=== PATIENT | male | born 1945 | race Caucasian/White ===

== ENCOUNTER 2020-01-02 21:16 | Inpatient (IN) | payer MEDICARE, OTHER ==
[~2020-01-02] VITALS: Ht 182.9 cm; Wt 91.8 kg
--- NOTE | 2020-01-02 21:46 | NUR ---
MD AT BEDSIDE PERFORMING A RECTAL EXAM DUE TO PATIENT REPORTING HE HAD BLACK STOOL TODAY
[2020-01-02] MEDS ORDERED: ACETAMINOPHEN 325 MG TABLET ONE (21:58)
[2020-01-02] MEDS ORDERED: SODIUM CHLORIDE FLUSH 10ML SYR IVF ONE (22:00)
[2020-01-02] MEDS ORDERED: ACETAMINOPHEN 325 MG TABLET PO ONE (22:00)
[2020-01-02 22:08] LABS: MICROSCOPIC AUTO
[2020-01-02 22:11] LABS: MEAN CORPUSCULAR HEMOGLOBIN 31.1 pg (27.5-34.5); MEAN CORPUSCULAR HGB CONC 34.6 g/dL (33.2-36.2); MEAN PLATELET VOLUME 6.7 fL (7.4-10.4); PLATELET COUNT 227 x10^3/uL (130-400); RED BLOOD COUNT 2.67 x10^6/uL (4.38-5.82); RED CELL DISTRIBUTION WIDTH 16.4 % (9.4-14.8)
[2020-01-02 22:20] LABS: ALBUMIN 2.9 g/dL (3.4-5.0); ANION GAP 8 mmol/L (5-15); CALCIUM 8.4 mg/dL (8.5-10.1); CHLORIDE 105 mmol/L (98-107)
[2020-01-02 22:26] LABS: BASOPHILS # (AUTO) 0.02 x10^3/uL (0-0.1); BASOPHILS % (AUTO) 1 % (0-1); EOSINOPHILS # (AUTO) 0.03 x10^3/uL (0-0.4); EOSINOPHILS % (AUTO) 1 % (1-7); LYMPHOCYTES # (AUTO) 0.66 x10^3/uL (1-3.4); LYMPHOCYTES % (AUTO) 30 % (22-44); MD MORPH REVIEW ONLY; MONOCYTES # (AUTO) 0.09 x10^3/uL (0.2-0.8); MONOCYTES % (AUTO) 4 % (2-9); NEUTROPHILS # (AUTO) 1.41 x10^3/uL (1.8-6.8); NEUTROPHILS % (AUTO) 64 % (42-75)
--- NOTE | 2020-01-02 22:26 | NUR ---
PATIENTS RECTAL WAS NEGATIVE
[2020-01-02 22:27] LABS: ANISOCYTOSIS 1+; OVALOCYTES 1+; POLYCHROMASIA 1+
[2020-01-02 22:28] LABS: <PLATELET ESTIMATE> ADEQUATE; <PLT MORPHOLOGY> NORMAL PLT MORPH
[2020-01-02] MEDS ORDERED: CEFTRIAXONE PMX 1GM/50ML 50 ML IV ONE (22:30)
[2020-01-02] MEDS ORDERED: CEFTRIAXONE PMX 1GM/50ML 50 ML ONE (22:33)
[2020-01-02] MEDS ORDERED: SODIUM CHLORIDE 0.9% 1,000 ML IV ONE (23:30)
[2020-01-03] MEDS ORDERED: BISACODYL 10 MG SUPP PR PRN
[2020-01-03] MEDS ORDERED: ONDANSETRON 2MG/ML, 2ML IVPush PRN
[2020-01-03] MEDS ORDERED: ONDANSETRON ODT 4 MG PO PRN
[2020-01-03] MEDS ORDERED: POLYETHYLENE GLYCOL 17 GM PACKET PO PRN
[2020-01-03] MEDS ORDERED: PROMETHAZINE 25 MG/ML, 1ML IM PRN
[2020-01-03] MEDS ORDERED: DOCUSATE 100 MG CAPSULE PO PRN
[2020-01-03] MEDS ORDERED: hydrALAzine 20 MG/ML, 1ML IVPush PRN
[2020-01-03] MEDS ORDERED: OXYcodone IR 5MG TABLET PO PRN
[2020-01-03] MEDS ORDERED: ACETAMINOPHEN 325 MG TABLET PO PRN
[2020-01-03] MEDS ORDERED: CHLO25TA PO (00:04)
[2020-01-03] MEDS ORDERED: AMLO10TA8 PO (00:04)
[2020-01-03] MEDS ORDERED: METF500T27 PO (00:04)
[2020-01-03] MEDS ORDERED: FINA5TAB4 PO (00:04)
[2020-01-03] MEDS ORDERED: SPIR25TA5 PO (00:04)
[2020-01-03] MEDS ORDERED: FERR324T5 PO (00:04)
[2020-01-03] MEDS ORDERED: ATOR-2 PO (00:04)
[2020-01-03] MEDS ORDERED: GABA300C PO (00:04)
[2020-01-03] MEDS ORDERED: HYDR-3343 PO (00:04)
[2020-01-03] MEDS ORDERED: HYDR-3342 PO (00:04)
[2020-01-03] MEDS ORDERED: TRAZ-175 PO (00:04)
[2020-01-03] MEDS ORDERED: CYAN250013 PO (00:04)
--- NOTE | 2020-01-03 00:05 | NUR ---
spoke with [facility] pharmacist and got patients medication list of the last 3 months
[2020-01-03 00:23] LABS: FREE T4 (FREE THYROXINE) 1.07 ng/dL (0.76-1.46)
[2020-01-03 00:59] VITALS: BP 168/67
[2020-01-03] MEDS: HEPARIN 5,000 UNITS/ML, 1ML SQ SCH ×3 (01:42→17:29)
[2020-01-03] MEDS: SODIUM CHLORIDE 0.9% 1,000 ML IV SCH ×3 (01:44→17:28)
[2020-01-03 05:52] LABS: MEAN CORPUSCULAR HEMOGLOBIN 30.4 pg (27.5-34.5); MEAN CORPUSCULAR HGB CONC 33.5 g/dL (33.2-36.2); MEAN PLATELET VOLUME 6.9 fL (7.4-10.4); PLATELET COUNT 210 x10^3/uL (130-400); RED BLOOD COUNT 2.47 x10^6/uL (4.38-5.82); RED CELL DISTRIBUTION WIDTH 16.5 % (9.4-14.8)
[2020-01-03 05:56] LABS: ALANINE AMINOTRANSFERASE 9 U/L (12-78); ALBUMIN 2.5 g/dL (3.4-5.0); ANION GAP 8 mmol/L (5-15); CALCIUM 7.9 mg/dL (8.5-10.1); CHLORIDE 108 mmol/L (98-107); CREATININE 2.65 mg/dL (0.7-1.3)
[2020-01-03 05:59] LABS: ALKALINE PHOSPHATASE 72 U/L (45-117); BILIRUBIN,TOTAL 0.6 mg/dL (0.2-1.0); CHOL/HDL RATIO 5.4; CHOLESTEROL, TOTAL 118 mg/dL (140-239); HDL CHOL % 19 % (26-37); HDL CHOLESTEROL (DIRECT) 22 mg/dL (40-60); LDL CHOLESTEROL,CALCULATED 56 mg/dL (54-169); LDL/HDL RATIO 2.5 (0.5-3.0); TOTAL PROTEIN 6.8 g/dL (6.4-8.2); TRIGLYCERIDES 198 mg/dL (50-200); VLDL CHOLESTEROL 40 mg/dL (0-25)
[2020-01-03 06:03] VITALS: BP 148/73
[2020-01-03 06:05] LABS: MD YES
[2020-01-03 06:08] LABS: BAND#(MANUAL) 0.17 x10^3/uL; BANDS%(MANUAL) 8 % (0-7); BASOS#(MANUAL) 0.02 x10^3/uL (0-0.1); BASOS% (MANUAL) 1 % (0-1); LYMPH#(MANUAL) 1.16 x10^3/uL (1-3.4); LYMPHS% (MANUAL) 55 % (22-44); MONOS#(MANUAL) 0.11 x10^3/uL (0.3-2.7); MONOS% (MANUAL) 5 % (2-9); SEG#(MANUAL) 0.65 x10^3/uL (1.8-6.8); SEGS% (MANUAL) 31 % (42-75)
[2020-01-03 06:11] LABS: <PLATELET ESTIMATE> ADEQUATE; <PLT MORPHOLOGY> NORMAL PLT MORPH; ANISOCYTOSIS 1+
[2020-01-03] MEDS: INSULIN LISPRO 100 UNITS/ML, PEN SQ-INSULIN SCH ×2 (07:00→11:00)
[2020-01-03] MEDS: FERROUS SULFATE 325 MG TABLET PO SCH (08:17)
[2020-01-03] MEDS: CYANOCOBALAMIN 1,000 MCG TABLET PO SCH (08:17)
[2020-01-03] MEDS: FINASTERIDE 5 MG TABLET PO SCH (08:17)
[2020-01-03] MEDS ORDERED: CEFTRIAXONE PMX 2GM/50ML 50 ML IV SCH (09:00)
[2020-01-03] MEDS ORDERED: CHLORTHALIDONE 25 MG TABLET PO SCH (09:00)
[2020-01-03] MEDS ORDERED: SPIRONOLACTONE 25 MG TABLET PO SCH (09:00)
[2020-01-03] MEDS ORDERED: PHARMACY MAY ADJ FOR RENAL FX MC PRN (11:30)
[2020-01-03 12:17] VITALS: BP 163/67
[2020-01-03 18:26] VITALS: BP 182/77
[2020-01-03] MEDS: AMLODIPINE 5 MG TABLET PO SCH (22:02)
[2020-01-03] MEDS: TRAZODONE 100MG TABLET PO SCH (22:02)
[2020-01-03] MEDS: ATORVASTATIN 40 MG TABLET PO SCH (22:02)
[2020-01-03 22:05] VITALS: BP 174/75
[2020-01-04 00:43] VITALS: BP 153/64
[2020-01-04] MEDS: SODIUM CHLORIDE 0.9% 1,000 ML IV SCH (03:57)
[2020-01-04] MEDS: HEPARIN 5,000 UNITS/ML, 1ML SQ SCH ×3 (05:42→21:08)
[2020-01-04 07:48] LABS: MEAN CORPUSCULAR HEMOGLOBIN 30.2 pg (27.5-34.5); MEAN CORPUSCULAR HGB CONC 33.3 g/dL (33.2-36.2); MEAN PLATELET VOLUME 6.4 fL (7.4-10.4); PLATELET COUNT 192 x10^3/uL (130-400); RED BLOOD COUNT 2.24 x10^6/uL (4.38-5.82); RED CELL DISTRIBUTION WIDTH 16.4 % (9.4-14.8)
[2020-01-04 07:59] LABS: BASOPHILS # (AUTO) 0.01 x10^3/uL (0-0.1); BASOPHILS % (AUTO) 0 % (0-1); EOSINOPHILS # (AUTO) 0.05 x10^3/uL (0-0.4); EOSINOPHILS % (AUTO) 3 % (1-7); LYMPHOCYTES # (AUTO) 0.67 x10^3/uL (1-3.4); LYMPHOCYTES % (AUTO) 41 % (22-44); MD SCAN; MONOCYTES % (AUTO) 6 % (2-9); NEUTROPHILS % (AUTO) 49 % (42-75)
[2020-01-04 08:00] LABS: CHLORIDE 112 mmol/L (98-107)
[2020-01-04 08:03] VITALS: BP 156/67
[2020-01-04 08:05] LABS: ANION GAP 9 mmol/L (5-15); CALCIUM 7.7 mg/dL (8.5-10.1); CREATININE 2.39 mg/dL (0.7-1.3)
[2020-01-04] MEDS: FINASTERIDE 5 MG TABLET PO SCH (09:11)
[2020-01-04] MEDS: CYANOCOBALAMIN 1,000 MCG TABLET PO SCH (09:11)
[2020-01-04] MEDS: FERROUS SULFATE 325 MG TABLET PO SCH (09:11)
[2020-01-04] MEDS ORDERED: PHARMACY MAY ADJ FOR RENAL FX MC PRN (11:30)
[2020-01-04 12:40] LABS: ABSOLUTE RETICS # 0.063 x10^6/uL (0.5-1.5); RED BLOOD COUNT 2.24 x10^6/uL (4.38-5.82); RETICULOCYTE COUNT % 2.83 % (0.5-1.5)
[2020-01-04 13:13] VITALS: BP 159/68
[2020-01-04] MEDS: PIPERACILLIN/TAZO/PMX 2.25GM 50 ML IV SCH ×2 (13:29→19:38)
[2020-01-04 15:12] LABS: OCCULT BLOOD NEGATIVE (NEGATIVE)
[2020-01-04 15:13] LABS: MEAN CORPUSCULAR HEMOGLOBIN 30.3 pg (27.5-34.5); MEAN CORPUSCULAR HGB CONC 33.2 g/dL (33.2-36.2); MEAN PLATELET VOLUME 6.2 fL (7.4-10.4); PLATELET COUNT 214 x10^3/uL (130-400); RED CELL DISTRIBUTION WIDTH 16.8 % (9.4-14.8)
[2020-01-04 16:14] LABS: BASOPHILS # (AUTO) 0.01 x10^3/uL (0-0.1); BASOPHILS % (AUTO) 1 % (0-1); EOSINOPHILS # (AUTO) 0.04 x10^3/uL (0-0.4); EOSINOPHILS % (AUTO) 2 % (1-7); LYMPHOCYTES # (AUTO) 0.58 x10^3/uL (1-3.4); LYMPHOCYTES % (AUTO) 34 % (22-44); MD SCAN; MONOCYTES # (AUTO) 0.09 x10^3/uL (0.2-0.8); MONOCYTES % (AUTO) 5 % (2-9); NEUTROPHILS # (AUTO) 1.02 x10^3/uL (1.8-6.8); NEUTROPHILS % (AUTO) 59 % (42-75)
[2020-01-04 17:20] LABS: PROTIME 11.3 Seconds (9.6-11.5)
[2020-01-04 17:24] LABS: D-DIMER (DIC) 27.29 ug/mlFEU (0.00-0.52)
[2020-01-04 19:12] VITALS: BP 181/66
[2020-01-04] MEDS: AMLODIPINE 5 MG TABLET PO SCH (21:08)
[2020-01-04] MEDS: TRAZODONE 100MG TABLET PO SCH (21:08)
[2020-01-04] MEDS: ATORVASTATIN 40 MG TABLET PO SCH (21:08)
[2020-01-04] MEDS: GABAPENTIN 300 MG CAPSULE PO PRN (21:16)
[2020-01-05 00:28] VITALS: BP 153/56
[2020-01-05] MEDS: PIPERACILLIN/TAZO/PMX 2.25GM 50 ML IV SCH ×4 (01:42→19:30)
[2020-01-05] MEDS: HEPARIN 5,000 UNITS/ML, 1ML SQ SCH ×3 (05:43→21:42)
[2020-01-05 06:14] LABS: ANION GAP 7 mmol/L (5-15); CALCIUM 8.1 mg/dL (8.5-10.1); CHLORIDE 113 mmol/L (98-107)
[2020-01-05 06:16] LABS: CREATININE 2.52 mg/dL (0.7-1.3)
[2020-01-05 06:52] LABS: MEAN CORPUSCULAR HEMOGLOBIN 30.7 pg (27.5-34.5); MEAN PLATELET VOLUME 6.3 fL (7.4-10.4); PLATELET COUNT 192 x10^3/uL (130-400); RED BLOOD COUNT 2.22 x10^6/uL (4.38-5.82); RED CELL DISTRIBUTION WIDTH 16.6 % (9.4-14.8)
[2020-01-05 07:25] LABS: MD YES
[2020-01-05 07:29] LABS: ANISOCYTOSIS 1+; BAND#(MANUAL) 0.02 x10^3/uL; BANDS%(MANUAL) 1 % (0-7); EOS#(MANUAL) 0.03 x10^3/uL (0.0-0.4); EOS% (MANUAL) 2 % (1-7); LYMPH#(MANUAL) 0.51 x10^3/uL (1-3.4); LYMPHS% (MANUAL) 30 % (22-44); METAMYELOCYTES# (MANUAL) 0.02 x10^3/uL (0-0); METAMYELOCYTES% (MANUAL) 1 % (0-1); MONOS#(MANUAL) 0.14 x10^3/uL (0.3-2.7); MONOS% (MANUAL) 8 % (2-9); POLYCHROMASIA 1+; SEG#(MANUAL) 0.99 x10^3/uL (1.8-6.8); SEGS% (MANUAL) 58 % (42-75)
[2020-01-05 07:30] LABS: <PLATELET ESTIMATE> ADEQUATE; <PLT MORPHOLOGY> NORMAL PLT MORPH
[2020-01-05 08:30] VITALS: BP 150/56
[2020-01-05] MEDS: IRON SUCROSE COMPLEX 100MG/5ML IV SCH (08:43)
[2020-01-05] MEDS: FERROUS SULFATE 325 MG TABLET PO SCH (08:43)
[2020-01-05] MEDS: FINASTERIDE 5 MG TABLET PO SCH (08:44)
[2020-01-05] MEDS: CYANOCOBALAMIN 1,000 MCG TABLET PO SCH (08:45)
[2020-01-05 13:50] VITALS: BP 149/70
[2020-01-05 19:24] VITALS: BP 160/71
[2020-01-05] MEDS: AMLODIPINE 5 MG TABLET PO SCH (20:47)
[2020-01-05] MEDS: TRAZODONE 100MG TABLET PO SCH (20:47)
[2020-01-05] MEDS: ATORVASTATIN 40 MG TABLET PO SCH (20:48)
[2020-01-06] VITALS (14 sets, daily range): BP systolic 131–179; BP diastolic 58–72
[2020-01-06] MEDS: PIPERACILLIN/TAZO/PMX 2.25GM 50 ML IV SCH ×4 (01:28→19:26)
[2020-01-06] MEDS: HEPARIN 5,000 UNITS/ML, 1ML SQ SCH ×3 (05:30→20:43)
[2020-01-06 06:06] LABS: MEAN CORPUSCULAR HEMOGLOBIN 30.2 pg (27.5-34.5); MEAN CORPUSCULAR HGB CONC 33.3 g/dL (33.2-36.2); MEAN PLATELET VOLUME 6.8 fL (7.4-10.4); PLATELET COUNT 178 x10^3/uL (130-400); RED BLOOD COUNT 2.19 x10^6/uL (4.38-5.82); RED CELL DISTRIBUTION WIDTH 16.3 % (9.4-14.8)
[2020-01-06 06:16] LABS: ANION GAP 7 mmol/L (5-15); CALCIUM 7.9 mg/dL (8.5-10.1); CHLORIDE 111 mmol/L (98-107)
[2020-01-06 06:28] LABS: MD YES
[2020-01-06 06:31] LABS: BAND#(MANUAL) 0.03 x10^3/uL; BANDS%(MANUAL) 2 % (0-7); LYMPH#(MANUAL) 0.51 x10^3/uL (1-3.4); LYMPHS% (MANUAL) 30 % (22-44); MONOS#(MANUAL) 0.12 x10^3/uL (0.3-2.7); MONOS% (MANUAL) 7 % (2-9); SEG#(MANUAL) 1.04 x10^3/uL (1.8-6.8); SEGS% (MANUAL) 61 % (42-75)
[2020-01-06 06:33] LABS: <PLATELET ESTIMATE> ADEQUATE; <PLT MORPHOLOGY> NORMAL PLT MORPH; ANISOCYTOSIS 1+; OVALOCYTES 1+; POLYCHROMASIA 1+
[2020-01-06] MEDS: FERROUS SULFATE 325 MG TABLET PO SCH (08:14)
[2020-01-06] MEDS: FINASTERIDE 5 MG TABLET PO SCH (08:14)
[2020-01-06] MEDS: IRON SUCROSE COMPLEX 100MG/5ML IV SCH (08:15)
[2020-01-06] MEDS: CYANOCOBALAMIN 1,000 MCG TABLET PO SCH (08:15)
[2020-01-06] MEDS ORDERED: FUROSEMIDE 20 MG/2 ML IV ONE (09:30)
[2020-01-06] MEDS ORDERED: DIPHENHYDRAMINE 12.5MG/5ML, 10ML UDC PO ONE (09:30)
[2020-01-06] MEDS ORDERED: ACETAMINOPHEN 325 MG TABLET PO ONE (09:30)
[2020-01-06] MEDS: TRAZODONE 100MG TABLET PO SCH (20:43)
[2020-01-06] MEDS: ATORVASTATIN 40 MG TABLET PO SCH (20:43)
[2020-01-06] MEDS: AMLODIPINE 5 MG TABLET PO SCH (20:43)
[2020-01-06] MEDS: GABAPENTIN 300 MG CAPSULE PO PRN (20:48)
[2020-01-07 00:11] VITALS: BP 150/60
[2020-01-07] MEDS: PIPERACILLIN/TAZO/PMX 2.25GM 50 ML IV SCH ×3 (01:10→14:10)
[2020-01-07] MEDS: HEPARIN 5,000 UNITS/ML, 1ML SQ SCH ×2 (02:16→13:30)
[2020-01-07 05:51] LABS: MEAN CORPUSCULAR HEMOGLOBIN 30.1 pg (27.5-34.5); MEAN CORPUSCULAR HGB CONC 33.5 g/dL (33.2-36.2); MEAN PLATELET VOLUME 6.9 fL (7.4-10.4); PLATELET COUNT 200 x10^3/uL (130-400); RED BLOOD COUNT 2.76 x10^6/uL (4.38-5.82); RED CELL DISTRIBUTION WIDTH 17.5 % (9.4-14.8)
[2020-01-07 05:53] LABS: ANION GAP 8 mmol/L (5-15); CALCIUM 8.2 mg/dL (8.5-10.1); CHLORIDE 110 mmol/L (98-107)
[2020-01-07 05:54] LABS: CREATININE 2.73 mg/dL (0.7-1.3)
[2020-01-07 06:17] LABS: BASOPHILS # (AUTO) 0.02 x10^3/uL (0-0.1); BASOPHILS % (AUTO) 1 % (0-1); EOSINOPHILS # (AUTO) 0.05 x10^3/uL (0-0.4); EOSINOPHILS % (AUTO) 2 % (1-7); LYMPHOCYTES # (AUTO) 0.85 x10^3/uL (1-3.4); LYMPHOCYTES % (AUTO) 37 % (22-44); MD SCAN; MONOCYTES # (AUTO) 0.12 x10^3/uL (0.2-0.8); MONOCYTES % (AUTO) 5 % (2-9); NEUTROPHILS # (AUTO) 1.23 x10^3/uL (1.8-6.8); NEUTROPHILS % (AUTO) 54 % (42-75)
[2020-01-07 07:02] VITALS: BP 154/59
[2020-01-07] MEDS: FINASTERIDE 5 MG TABLET PO SCH (07:47)
[2020-01-07] MEDS: CYANOCOBALAMIN 1,000 MCG TABLET PO SCH (07:47)
[2020-01-07] MEDS: IRON SUCROSE COMPLEX 100MG/5ML IV SCH (07:47)
[2020-01-07] MEDS: FERROUS SULFATE 325 MG TABLET PO SCH (07:47)
[2020-01-07] MEDS ORDERED: FLUMAZENIL 0.1 MG/1 ML, 5ML ONE (07:56)
[2020-01-07] MEDS ORDERED: FENTANYL PF 100 MCG/2ML ONE ×2 (07:56)
[2020-01-07] MEDS ORDERED: MIDAZOLAM 1 MG/ML, 5ML ONE ×2 (07:56)
[2020-01-07] MEDS ORDERED: NALOXONE 1 MG/ML, 2ML ONE (07:57)
[2020-01-07 13:05] VITALS: BP 143/66
[2020-01-07] MEDS ORDERED: CIPR500T87 PO ×2 (15:33)
[2020-01-07] MEDS ORDERED: CIPROFLOXACIN 500 MG TABLET PO ONE (17:00)
[2020-01-08 13:43] LABS: ANA SCREEN POSITIVE (Negative); ANTI-NUCLEAR ANTIBODY PATTERN HOMOGENOUS
== END 2020-01-07 17:40 | disposition home or self-care (01) | DRG 871 ==
LOC: ED 22:27 → EDIP 23:42 → 3N 01-03 00:56
PROVIDERS: ADMIT Internal Medicine; ATTEND Internal Medicine
PROC: 30233N1 Transfusion of Nonautologous Red Blood Cells into Peripheral Vein, Percutaneous Approach (ICD-10-PCS; 2020-01-06)
PROC: 07DR3ZX Extraction of Iliac Bone Marrow, Percutaneous Approach, Diagnostic (ICD-10-PCS; principal; 2020-01-07)
DX: A41.9 Sepsis, unspecified organism (principal); N17.0 Acute kidney failure with tubular necrosis; J18.9 Pneumonia, unspecified organism; N10 Acute pyelonephritis; E44.0 Moderate protein-calorie malnutrition; Z16.19 Resistance to other specified beta lactam antibiotics; D70.9 Neutropenia, unspecified; Z20.828 Contact with and (suspected) exposure to other viral communicable diseases; B96.20 Unspecified Escherichia coli [E. coli] as the cause of diseases classified elsewhere; B96.89 Other specified bacterial agents as the cause of diseases classified elsewhere; D50.9 Iron deficiency anemia, unspecified; D63.8 Anemia in other chronic diseases classified elsewhere; E11.22 Type 2 diabetes mellitus with diabetic chronic kidney disease; E86.0 Dehydration; I12.9 Hypertensive chronic kidney disease with stage 1 through stage 4 chronic kidney disease, or unspecified chronic kidney disease; I27.20 Pulmonary hypertension, unspecified; N18.9 Chronic kidney disease, unspecified; N32.9 Bladder disorder, unspecified; R31.29 Other microscopic hematuria; Z87.891 Personal history of nicotine dependence; N40.0 Benign prostatic hyperplasia without lower urinary tract symptoms
CPT/HCPCS: 36415; 38222; 71045; 74176; 76770; 77012; 78582; 80048; 80053; 80061; 80074; 81001; 82040; 82272; 82306; 82607; 82728; 82962; 83010; 83036; 83540; 83550; 83605; 83615; 83735; 83883; 84155; 84165; 84439; 84443; 84466; 84550; 85025; 85045; 85049; 85060; 85097; 85379; 85384; 85610; 85730; 86038; 86039; 86430; 86850; 86900; 86923; 87040; 87077; 87086; 87186; 87535; 87536; 87806; 88184; 88185; 88237; 88264; 88280; 88305; 88311; 88313; 88374; 93306; 93970; 99156; 99157; 99291; G0378; J0696; J1644; J1756; J2250; J2543; J3010; A9540; A9558; C9898; G0475; J1940; J2310; J7030; P9016

== ENCOUNTER 2020-01-18 07:43 | Inpatient (IN) | payer MEDICARE ==
[~2020-01-18] VITALS: Ht 180.3 cm; Wt 88.5 kg
[~2020-01-18 07:43] MED LIST: AMLO10TA8 PO; ATOR-2 PO; CHLO25TA PO; CIPR500T87 PO; CYAN250013 PO; FERR324T5 PO; FINA5TAB4 PO; GABA300C PO; HYDR-3342 PO; HYDR-3343 PO; METF500T27 PO; SPIR25TA5 PO; TRAZ-175 PO
[2020-01-18] MEDS ORDERED: SODIUM CHLORIDE FLUSH 10ML SYR IVF ONE (08:30)
[2020-01-18] MEDS ORDERED: methylPREDNISolone SOD SUCC 125 MG/2 ML IVPush ONE (08:30)
[2020-01-18] MEDS ORDERED: methylPREDNISolone SOD SUCC 125 MG/2 ML ONE (08:30)
[2020-01-18 08:34] LABS: MEAN CORPUSCULAR HEMOGLOBIN 28.8 pg (27.5-34.5); MEAN CORPUSCULAR HGB CONC 32.6 g/dL (33.2-36.2); MEAN CORPUSCULAR VOLUME 88.3 fL (81-97); MEAN PLATELET VOLUME 6.3 fL (7.4-10.4); PLATELET COUNT 250 x10^3/uL (130-400); RED BLOOD COUNT 3.08 x10^6/uL (4.38-5.82); RED CELL DISTRIBUTION WIDTH 16.1 % (9.4-14.8)
--- NOTE | 2020-01-18 08:39 | NUR ---
Break RN note: PIV inserted and pt medicated per AUG. Pt c/o 01/27 pain in his throat. Pt's resps even and unlabored, he is able to swallow his secretions although he reports pain when doing so. Pt resting in bed with eyes closed, NADN. Continuous oxygen and BP Monitors are in place, all safety measures observed.
[2020-01-18 08:43] LABS: ALBUMIN 2.9 g/dL (3.4-5.0); ANION GAP 12 mmol/L (5-15); CALCIUM 8.7 mg/dL (8.5-10.1); CHLORIDE 105 mmol/L (98-107); CREATININE 3.63 mg/dL (0.7-1.3)
[2020-01-18 09:04] LABS: BASOPHILS # (AUTO) 0.01 x10^3/uL (0-0.1); BASOPHILS % (AUTO) 0 % (0-1); EOSINOPHILS # (AUTO) 0.02 x10^3/uL (0-0.4); EOSINOPHILS % (AUTO) 1 % (1-7); LYMPHOCYTES # (AUTO) 0.49 x10^3/uL (1-3.4); LYMPHOCYTES % (AUTO) 19 % (22-44); MD SCAN; MONOCYTES # (AUTO) 0.19 x10^3/uL (0.2-0.8); MONOCYTES % (AUTO) 7 % (2-9); NEUTROPHILS # (AUTO) 1.92 x10^3/uL (1.8-6.8); NEUTROPHILS % (AUTO) 73 % (42-75)
[2020-01-18] MEDS ORDERED: SODIUM CHLORIDE 0.9% 1,000 ML IV ONE (09:18)
[2020-01-18] MEDS ORDERED: SPIR25TA5 PO (10:38)
[2020-01-18] MEDS ORDERED: TRAZ-175 PO (10:39)
--- NOTE | 2020-01-18 10:50 | NUR ---
PHARMACY REQUEST SLIP SENT TO PHARMACY FOR TORREYSYN.
[2020-01-18] MEDS ORDERED: AMPICILLIN/SULBACTAM 1,500 MG in SODIUM CHLORIDE 0.9% 50 ML IV SCH ×2 (11:00→13:30)
--- NOTE | 2020-01-18 11:21 | NUR ---
PT AMBULATED TO THE BATHROOM AND WAS FAIRLY STEADY ON FEET WITH ONLY STAND-BY ASSIST.
[2020-01-18] MEDS ORDERED: SODIUM CHLORIDE FLUSH 10ML SYR IVF PRN (11:30)
[2020-01-18] MEDS ORDERED: DEXTROSE 4 GM TAB.CHEW PO PRN (13:30)
[2020-01-18] MEDS ORDERED: GABAPENTIN 300 MG CAPSULE PO PRN (13:30)
[2020-01-18] MEDS ORDERED: ONDANSETRON 2MG/ML, 2ML IVPush PRN (13:30)
[2020-01-18] MEDS ORDERED: PHARMACY MAY ADJ FOR RENAL FX MC PRN ×2 (13:30)
[2020-01-18] MEDS ORDERED: GLUCAGON 1 MG IM PRN (13:30)
[2020-01-18] MEDS ORDERED: ACETAMINOPHEN 325 MG SUPP PR PRN (13:30)
[2020-01-18] MEDS ORDERED: DEXTROSE 50%, 50ML SYRINGE IVPush PRN (13:30)
[2020-01-18] MEDS ORDERED: DOCUSATE 100 MG CAPSULE PO PRN (13:30)
[2020-01-18] MEDS ORDERED: morphine SULFATE 10 MG/ML, 1ML IVPush PRN (13:30)
--- NOTE | 2020-01-18 14:44 | NUR ---
Break RN note: Pt resting in bed with eyes closed, resp even and unlabored, NADN. US tech at bedside to perform ordered studies.
[2020-01-18] MEDS: SODIUM CHLORIDE 0.9% 1,000 ML IV SCH ×2 (16:05→21:16)
[2020-01-18] MEDS: INSULIN LISPRO 100 UNITS/ML, PEN SQ-INSULIN SCH ×2 (16:10→21:00)
[2020-01-18 16:30] VITALS: BP 184/73
[2020-01-18 17:43] VITALS: BP 181/72
[2020-01-18] MEDS: hydrALAzine 20 MG/ML, 1ML IV PRN (17:44)
[2020-01-18 19:30] VITALS: BP 171/73
[2020-01-18 20:29] VITALS: BP 171/73
[2020-01-18] MEDS: AMLODIPINE 5 MG TABLET PO SCH (21:16)
[2020-01-18] MEDS: SODIUM CHLORIDE FLUSH 10ML SYR IVF SCH (21:17)
[2020-01-19] VITALS (8 sets, daily range): BP systolic 124–169; BP diastolic 63–70
[2020-01-19] MEDS ORDERED: AMPICILLIN/SULBACTAM 1,500 MG in SODIUM CHLORIDE 0.9% 50 ML IV SCH (01:00)
[2020-01-19] MEDS: SODIUM CHLORIDE 0.9% 1,000 ML IV SCH (05:00)
[2020-01-19 05:58] LABS: BASOPHILS # (AUTO) 0.01 x10^3/uL (0-0.1); BASOPHILS % (AUTO) 0 % (0-1); EOSINOPHILS % (AUTO) 0 % (1-7); LYMPHOCYTES # (AUTO) 0.46 x10^3/uL (1-3.4); LYMPHOCYTES % (AUTO) 13 % (22-44); MD NO; MEAN CORPUSCULAR HEMOGLOBIN 29.2 pg (27.5-34.5); MEAN CORPUSCULAR HGB CONC 32.7 g/dL (33.2-36.2); MEAN CORPUSCULAR VOLUME 89.2 fL (81-97); MEAN PLATELET VOLUME 6.7 fL (7.4-10.4); MONOCYTES # (AUTO) 0.21 x10^3/uL (0.2-0.8); MONOCYTES % (AUTO) 6 % (2-9); NEUTROPHILS # (AUTO) 2.92 x10^3/uL (1.8-6.8); NEUTROPHILS % (AUTO) 81 % (42-75); PLATELET COUNT 252 x10^3/uL (130-400); RED BLOOD COUNT 2.74 x10^6/uL (4.38-5.82); RED CELL DISTRIBUTION WIDTH 16.2 % (9.4-14.8)
[2020-01-19 06:01] LABS: ANION GAP 13 mmol/L (5-15); CALCIUM 7.8 mg/dL (8.5-10.1); CHLORIDE 112 mmol/L (98-107)
[2020-01-19 06:03] LABS: CREATININE 3.44 mg/dL (0.7-1.3)
[2020-01-19] MEDS: LACTATED RINGERS 1,000 ML IV SCH ×2 (06:31→20:03)
[2020-01-19] MEDS: INSULIN LISPRO 100 UNITS/ML, PEN SQ-INSULIN SCH ×4 (07:00→20:10)
[2020-01-19] MEDS: SODIUM CHLORIDE FLUSH 10ML SYR IVF SCH ×2 (08:43→20:37)
[2020-01-19] MEDS: CYANOCOBALAMIN 1,000 MCG TABLET PO SCH (08:45)
[2020-01-19] MEDS: FERROUS SULFATE 325 MG TABLET PO SCH (08:45)
[2020-01-19] MEDS: FINASTERIDE 5 MG TABLET PO SCH (08:45)
[2020-01-19] MEDS: AMOXICILLIN/CLAV 875-125MG TABLET PO SCH (20:15)
[2020-01-19] MEDS: AMLODIPINE 5 MG TABLET PO SCH (20:17)
[2020-01-20] VITALS (7 sets, daily range): BP systolic 151–193; BP diastolic 52–87
[2020-01-20 04:29] LABS: MEAN CORPUSCULAR HGB CONC 33.8 g/dL (33.2-36.2); MEAN CORPUSCULAR VOLUME 88.6 fL (81-97); MEAN PLATELET VOLUME 6.7 fL (7.4-10.4); PLATELET COUNT 275 x10^3/uL (130-400); RED CELL DISTRIBUTION WIDTH 15.7 % (9.4-14.8)
[2020-01-20 04:39] LABS: ALBUMIN 2.5 g/dL (3.4-5.0); ANION GAP 9 mmol/L (5-15); CALCIUM 7.9 mg/dL (8.5-10.1); CHLORIDE 112 mmol/L (98-107); CREATININE 3.29 mg/dL (0.7-1.3)
[2020-01-20 05:11] LABS: BASOPHILS # (AUTO) 0.01 x10^3/uL (0-0.1); BASOPHILS % (AUTO) 1 % (0-1); EOSINOPHILS # (AUTO) 0.01 x10^3/uL (0-0.4); EOSINOPHILS % (AUTO) 1 % (1-7); LYMPHOCYTES # (AUTO) 0.96 x10^3/uL (1-3.4); LYMPHOCYTES % (AUTO) 34 % (22-44); MD SCAN; MONOCYTES # (AUTO) 0.11 x10^3/uL (0.2-0.8); MONOCYTES % (AUTO) 4 % (2-9); NEUTROPHILS # (AUTO) 1.77 x10^3/uL (1.8-6.8); NEUTROPHILS % (AUTO) 62 % (42-75)
[2020-01-20] MEDS: LACTATED RINGERS 1,000 ML IV SCH (05:43)
[2020-01-20] MEDS: INSULIN LISPRO 100 UNITS/ML, PEN SQ-INSULIN SCH ×4 (07:00→21:00)
[2020-01-20] MEDS ORDERED: DEXAMETHASONE 4 MG TABLET PO ONE (07:30)
[2020-01-20] MEDS: CYANOCOBALAMIN 1,000 MCG TABLET PO SCH (07:58)
[2020-01-20] MEDS: AMOXICILLIN/CLAV 875-125MG TABLET PO SCH ×2 (07:58→20:32)
[2020-01-20] MEDS: FERROUS SULFATE 325 MG TABLET PO SCH (07:59)
[2020-01-20] MEDS: FINASTERIDE 5 MG TABLET PO SCH (07:59)
[2020-01-20] MEDS: SODIUM CHLORIDE FLUSH 10ML SYR IVF SCH ×2 (08:06→20:41)
[2020-01-20] MEDS: hydrALAzine 20 MG/ML, 1ML IV PRN ×2 (12:56→19:46)
[2020-01-20] MEDS ORDERED: OXYBUTYNIN CHLORIDE 5 MG TABLET PO PRN (14:30)
[2020-01-20] MEDS ORDERED: METOPROLOL SUCCINATE 25 MG TAB.ER.24H PO ONE (14:30)
[2020-01-20] MEDS: AMLODIPINE 5 MG TABLET PO SCH (20:33)
[2020-01-21 00:23] VITALS: BP 167/68
[2020-01-21 01:40] LABS: MICROSCOPIC AUTO
[2020-01-21 01:48] LABS: CREATININE,URINE RANDOM 44.8 mg/dL
[2020-01-21 05:48] LABS: ANION GAP 12 mmol/L (5-15); CALCIUM 7.9 mg/dL (8.5-10.1); CHLORIDE 109 mmol/L (98-107)
[2020-01-21 05:51] LABS: CREATININE 3.08 mg/dL (0.7-1.3)
[2020-01-21] MEDS ORDERED: LACTATED RINGERS 1,000 ML IV SCH (06:30)
[2020-01-21] MEDS: INSULIN LISPRO 100 UNITS/ML, PEN SQ-INSULIN SCH (07:00)
[2020-01-21 07:02] VITALS: BP 171/64
[2020-01-21] MEDS ORDERED: AMOX1TAB12 PO (07:41)
[2020-01-21] MEDS ORDERED: OXYB5TAB10 PO (07:41)
[2020-01-21] MEDS: SODIUM CHLORIDE FLUSH 10ML SYR IVF SCH (08:00)
[2020-01-21] MEDS ORDERED: METO25TA91 PO (08:08)
[2020-01-21] MEDS: FERROUS SULFATE 325 MG TABLET PO SCH (08:42)
[2020-01-21] MEDS: AMOXICILLIN/CLAV 875-125MG TABLET PO SCH (08:42)
[2020-01-21] MEDS: CYANOCOBALAMIN 1,000 MCG TABLET PO SCH (08:42)
[2020-01-21] MEDS: FINASTERIDE 5 MG TABLET PO SCH (08:43)
[2020-01-21] MEDS ORDERED: METOPROLOL SUCCINATE 25 MG TAB.ER.24H PO SCH (09:00)
== END 2020-01-21 10:29 | disposition home or self-care (01) | DRG 152 ==
LOC: ED 09:07 → EDIP 11:23 → 3N 16:24 → DCLOUNGE 01-21 10:21
PROVIDERS: ADMIT Hospitalist; ATTEND Hospitalist
DX: J02.9 Acute pharyngitis, unspecified (principal); N17.0 Acute kidney failure with tubular necrosis; D61.818 Other pancytopenia; N10 Acute pyelonephritis; I27.20 Pulmonary hypertension, unspecified; R13.10 Dysphagia, unspecified; N18.9 Chronic kidney disease, unspecified; I12.9 Hypertensive chronic kidney disease with stage 1 through stage 4 chronic kidney disease, or unspecified chronic kidney disease; E11.22 Type 2 diabetes mellitus with diabetic chronic kidney disease; F41.9 Anxiety disorder, unspecified; N40.0 Benign prostatic hyperplasia without lower urinary tract symptoms
CPT/HCPCS: 36415; 70490; 76770; 80048; 80069; 81001; 82040; 82306; 82570; 82962; 83516; 83520; 83970; 84156; 85025; 86160; 86162; 86225; 86256; 86308; 86361; 87081; 87880; G0378; J0295; J0360; J2930; J7030; J7120